=== PATIENT | female | born 1955 | race Caucasian/White ===

== ENCOUNTER 2019-10-19 15:40 | Emergency (ER) | payer MEDICARE, OTHER, SELFPAY ==
[2019-10-19 15:58] VITALS: BP 111/54; PULSE 66; RESP 18; TEMP 37.6; O2SAT 97
--- NOTE | 2019-10-19 16:07 | ED.WOUNDLAC ---
HPI - Wound/Laceration General Chief Complaint: Wound/Laceration Stated Complaint: Laceration left finger Time Seen by Provider: 10/19/19 16:08 Source: patient Mode of arrival: ambulatory Limitations: no limitations History of Present Illness HPI narrative: Latasha Durán a 64 yo female with a PMH of hypothyroid, hypertension,incontinence, depression, who comes to express care for small laceraton to finger 3 of left hand. Laceration occurred in last hour (cutting onion) Related Data Home Medications Medication Instructions Recorded Confirmed hydroxyzine HCl 10/19/19 levothyroxine 10/19/19 lisinopril-hydrochlorothiazide tablet 10/19/19 oxybutynin chloride mg PO 10/19/19 sertraline mg 10/19/19 Allergies Allergy/AdvReac Type Severity Reaction Status Date / Time No Known Allergies Allergy Verified 10/19/19 15:52 Review of Systems Review of Systems: Narrative: CONSTITUTIONAL: Denies fever, chills, sweats. EYES: Denies visual changes, redness, discharge. ENT: Denies rhinorrhea, congestion, sore throat, otalgia. CARDIOVASCULAR: Denies chest pain, palpitations, edema. RESPIRATORY: Denies dyspnea, wheezing, cough GASTROINTESTINAL: Denies abdominal pain, nausea, vomiting, diarrhea. GENITOURINARY: Denies dysuria, hematuria, abnormal discharge SKIN: Denies rash or itching.Laceration to L 4th finger NEUROLOGIC: Denies numbness, or focal weakness. PSYCHIATRIC: Denies anxiety or depression. PMFSH Family History Family History Other Hypertension Social History Social History (Updated 10/19/19 @ 16:55 by Sherlyn Dalton CNP) Smoking status: Former smoker Alcohol intake: current Comments At time of signature, I agree with nursing past medical, surgical, social and family history. There is no relevant family history pertinent to the presenting complaint. Exam Narrative: Exam Narrative: GENERAL: This is a well-nourished, well-developed patient, in no apparent distress. HEAD: normocephalic, atraumatic. EYES: Sclera clear/white. Vision is grossly intact. EARS: External ears normal. Hearing grossly intact. NOSE: External nose normal with no obvious nasal discharge, nares without redness, no rhinorrhea. THROAT: Mucous membranes moist, posterior pharynx clear. NECK: Neck supple, non-tender . CARDIOVASCULAR: Regular rate and rhythm without murmurs, gallops, or rubs. RESPIRATORY: Clear to auscultation. Breath sounds equal bilaterally. No wheezes, rales, or rhonchi. GASTROINTESTINAL: Abdomen soft, SKIN: warm, intact with laceration to L 4th finger NEURO: awake, alert, and oriented to person, place and time. There were no obvious focal neurologic abnormalities. Steady gait EXTREMITIES: Normal range of motion. No edema. BACK: Nontender without deformity . Course Course Emergency Course: lAC REPAIR, TETANUS GIVEN Vital Signs Vital signs: Vital Signs Temperature 99.6 F 10/19/19 15:58 Pulse Rate 66 10/19/19 15:58 Respiratory Rate 18 10/19/19 15:58 Blood Pressure 111/54 L 10/19/19 15:58 Pulse Oximetry 97 10/19/19 15:58 Temperature 99.6 F 10/19/19 15:58 Pulse Rate 66 10/19/19 15:58 Respiratory Rate 18 10/19/19 15:58 Blood Pressure 111/54 L 10/19/19 15:58 Pulse Oximetry 97 10/19/19 15:58 Procedures Laceration Laceration 1: Date: 10/19/19 Time: 16:58 Site: hand Side (If applicable): left Size (cm): 2 Description: linear Depth: simple, single layer Local Anesthetic: lidocaine 1% Amount of anesthesia used (mL): 3 Pre-repair: irrigated ====== Skin Level ====== Skin layer closed with: nylon Size (cm): 4-0 Number of sutures: 3 Technique: simple, interrupted ====== Subcutaneous Layer ====== ====== Muscle Layer ====== ====== Tendon Layer ====== Dressing: Tolerated procedure well [facility]
--- NOTE | 2019-10-19 16:24 | PC.NURSE ---
boostrix given right deltoid vorb lot [id number] exp 06/28/20
--- NOTE | 2019-10-19 16:34 | PC.NURSE ---
inpatient services director at bedside to do lidocaine prior to sutures. it and pharmacy called in regard to inabliity to put boostrix order in computer and to scan.
== END 2019-10-19 17:02 | disposition home or self-care (01) ==
PROVIDERS: Emergency Provider Nurse Practitioner; PCP Family Medicine
DX: S61.215A Laceration without foreign body of left ring finger without damage to nail, initial encounter (principal); X58.XXXA Exposure to other specified factors, initial encounter; Y93.G9 Activity, other involving cooking and grilling; Z23 Encounter for immunization; E03.9 Hypothyroidism, unspecified; I10 Essential (primary) hypertension; F32.9 Major depressive disorder, single episode, unspecified
CPT/HCPCS: 12001; 90471; 90715; 99212; G0463

== ENCOUNTER → 2021-02-21 08:18 | Outpatient (CLI) | payer MEDICARE, OTHER, SELFPAY ==
[2021-02-21 18:53] LABS: SARS-CoV-2 RNA PCR Positive
== END ==
PROVIDERS: PCP Family Medicine; Visit Provider Nurse Practitioner Family
DX: U07.1 COVID-19 (principal); R50.9 Fever, unspecified
CPT/HCPCS: C9803; U0003; U0005

== ENCOUNTER 2024-09-06 09:54 | Outpatient (CLI) | payer MEDICARE, OTHER, SELFPAY ==
--- NOTE | ~2024-09-06 | MR_ITS ---
EXAMINATION: MR shoulder LT wo con DATE: 09/06/2024 10:28 INDICATION: Left shoulder pain. TECHNIQUE: Magnetic resonance imaging (MRI) of the left shoulder was performed without intravenous co ntrast. Sequences included axial PD-weighted FS FSE, coronal oblique PD-weighted FS FSE, coronal obli que T2-weighted FS FSE, sagittal PD-weighted FS FSE, and sagittal T1-weighted SE. COMPARISON: None. FINDINGS: Coracoacromial arch: The acromion undersurface is flat in morphology (type I). Small subacromial spur along the acromial i nsertion of the normal coracoacromial ligament. Mild acromioclavicular osteoarthritis. Rotator cuff: Full-thickness rotator cuff tear along the greater tuberosity footplate involving the entire supraspi natus tendon which is retracted 5 cm medially. The tear extends posteriorly to involve at least the a nterior three fourths of the infraspinatus tendon. There is also severe infraspinatus tendinopathy. M ild subscapularis and teres minor tendinopathy without tear. There is mild medial retraction of the s upraspinatus muscle belly. No asymmetric fatty atrophy of the rotator cuff muscles. There is some fea thery muscular edema within the supraspinatus muscle belly which could be related to muscle strain or reactive edema related to the rotator cuff disease and tear. Biceps tendon, glenoid labrum and glenohumeral cartilage: Mild tendinopathy without tear of the long head biceps tendon. Glenoid labrum is normal. There is dif fuse partial-thickness cartilage loss with chondral surface irregularity involving greater than 50% t he cartilage thickness along portions of the glenoid. There is underlying mild subarticular cystlike and edema-like signal change along the inferior rim of the glenoid. Less severe partial thickness car tilage loss with some additional chondral surface irregularity but without degenerative subchondral c hanges at the humeral head. Fluid: Small glenohumeral joint effusion with mild synovitis at the axillary recess. There is fluid extendin g through the full-thickness rotator cuff tear into the subacromial/subdeltoid bursa. No loose osteoc hondral bodies. Bones: There is mild cephalad subluxation of the humeral head with respect to the glenoid with narrowing of the subacromial space resulting from the rotator cuff tear. Small marginal ossified swelling the infe romedial aspect of the humeral head. Cystic change along the greater tuberosity likely related to rot ator cuff disease. Largest underlying the medial facet. No fracture or pathologic marrow replacing pr ocess. IMPRESSION: 1. Full-thickness rotator cuff tear involving the entire supraspinatus and anterior three fourths of the infraspinatus tendon. 2. Mild to moderate glenohumeral osteoarthritis with high-grade chondromalacia along the inferior gle noid. 3. Mild tendinopathy without tear of the long head biceps tendon. Reviewed, dictated and finalized at location A. [employer]ACH[employer]PER[employer] IMPRESSION: 1. Full-thickness rotator cuff tear involving the entire supraspinatus and ante rior three fourths of the infraspinatus tendon. 2. Mild to moderate glenohumeral osteoarthritis with high-grade chondromalacia along the inferior glenoid. 3. Mild tendinopathy without tear of the long head biceps tendon.
== END 2024-09-06 09:55 | disposition home or self-care (01) ==
LOC: GOSHIMG 09:55
PROVIDERS: PCP Orthopaedic Surgery; Visit Provider Orthopaedic Surgery
DX: M75.112 Incomplete rotator cuff tear or rupture of left shoulder, not specified as traumatic (principal); M19.012 Primary osteoarthritis, left shoulder; M94.212 Chondromalacia, left shoulder; M75.22 Bicipital tendinitis, left shoulder; M25.512 Pain in left shoulder; G89.29 Other chronic pain
CPT/HCPCS: 73221